=== PATIENT | male | born 1960 | race African-American/Black ===

== ENCOUNTER 2025-01-15 07:43 | Outpatient (CLI) | payer OTHER, SELFPAY ==
--- NOTE | ~2025-01-15 | PE_ITS ---
EXAMINATION: PET_PETPSMAST_PT DATE: 01/15/2025 10:28 INDICATION: Prostate cancer. TECHNIQUE: 4.573 mCi of Ga-68 gozetotide was administered intravenously. Low dose computed tomography (CT) images were acquired from the base of the brain to the proximal thighs for attenuation correction and anatomic localization. Automated exposure control was employed. Dose-length product (DLP) was 1056 mGy- cm. Positron emission tomography (PET) images were acquired in the same distribution. COMPARISON: None FINDINGS: Head/neck: There are no pathologically enlarged lymph nodes. There is a 12 mm nodule in the thyroid, likely not clinically significant. Chest: The lungs demonstrate mild atelectasis. No pleural effusion. Calcified right hilar lymph nodes are consistent with old granulomatous disease. The heart size is normal. No pericardial effusion. There is mild bilateral gynecomastia. Abdomen/pelvis/proximal thighs: The liver, gallbladder, spleen, pancreas, and left adrenal gland are normal. There is a 2.0 cm mass in right adrenal gland without increased activity. Right kidney is normal. There is a 3.6 cm cyst in left kidney. There is no urolithiasis. The prostate is moderately enlarged. There is increased activity in the prostate on the left with maximum SUV of 17.6. There is diffuse bladder wall thickening, likely secondary to chronic outlet obstruction. Stool distends the rectum. There is diverticulosis of the colon without evidence of diverticulitis. The appendix is normal. There are no pathologically enlarged lymph nodes. There is no free intraperitoneal fluid. There is no osseous malignancy. IMPRESSION: 1. Moderately enlarged prostate with increased activity on the left, consistent with primary malignancy. No metastatic prostate cancer. 2. 2.0 cm right adrenal mass. In the absence of other known malignancy, this finding is likely an adenoma. Reviewed, dictated and finalized at location E. IMPRESSION: 1. Moderately enlarged prostate with increased activity on the left, consistent with primary malignancy. No metastatic prostate cancer. 2. 2.0 cm right adrenal mass. In the absence of other known malignancy, this fi nding is likely an adenoma.
--- OUTSIDE RECORDS SUMMARY | 2025-01-15 08:09 | XMS_ITS | Encounter Summary ---
Author Organization [facility] Address [address] [place] [address] Phone Care Team Providers Care Mail Caller Name Role Phone Katy Painter APRN, PESTICIDE CONTROL INSPECTOR Primary Care P rovider Alexi Cueva APRN, PESTICIDE CONTROL INSPECTOR Unavailable + [phone] Reason for Visit * Reason Comments Medication Refill Encounter Details Date Type Department Care Team (Late st Contact Info) Description 07/27/2023 Refill [facility] - Primary Care - [place] [address] [place] [address] Katy Painter APRN, PESTICIDE CONTROL INSPECTOR [address] [place] [address] Medication Refill Social History Tobacco Use Types Packs/Day Years Used Date Smoking Tobacco: Former Cigarettes 1 5 0 06/24/1980 - 06/24/1985 Smokeless Tobacco: Never Alcohol Use Standard Drinks/Week Comments Yes 0 (1 standard drink = 0.6 oz pur e alcohol) Socially Social Connection and Isolation Panel Answer Date Recorded In a typical week, how many times do you talk on the phone with family, friends, or neighbors? Patient declined 04/18/2023 How often do you get togethe r with friends or relatives? Patient declined 04/18/2023 How often do you attend [facility] or confucianism services? More than 4 times per year 04/18/2023 Do you belong to any clubs o r organizations such as confucianism groups, unions, fraternal or athletic groups, or school groups? Yes 04/18/2023 How often do you attend meet ings of the clubs or organizations you belong to? More than 4 times per year 04/18/2023 Are you , , di vorced, , never , or living with a partner? 04/18/2023 AUDIT-C Answer Date Recorded Q1: How often do you have a drink containing alc ohol? Patient declined 04/18/2023 Q2: How many drinks containi ng alcohol do you have on a typical day when you are drinking? Patient declined 04/18/2023 Q3: How often do you have si x or more drinks on one occasion? Patient declined 04/18/2023 Overall Financial Resource Strain (CARDIA) Answe r Date Recorded How hard is it for you to pa y for the very basics like food, housing, medical care, and heating? Patient declined 04/18/2023 PHQ-2 Answer Date Recorded Total Score - Questions 1-9 0 06/02 [facility] Occupat ional [facility] - Occupational Stress Questionnaire Answer Date Recorded Do you feel stress - tense, restless, nervous, or anxious, or unable to sleep at night because your mind is troubled all the time - these days? Patient declined 04/18/2023 Exercise Vital Sign Answer Date Recorde d On average, how many days pe r week do you engage in moderate to strenuous exercise (like a brisk walk)? 5 days 04/18/2023 On average, how many minutes do you engage in exercise at this level? 30 min 04/18/2023 Hunger Vital Sign Answer Date Recorded Within the past 12 months, y ou worried that your food would run out before you got the money to buy more. Patient declined Within the past 12 months, t he food you bought just didn't last and you didn't have money to get more. Patient declined PRAPARE - Transportation Answer Date Re corded In the past 12 months, has l ack of transportation kept you from medical appointments or from getting medications? No 03/31 In the past 12 months, has l ack of transportation kept you from meetings, work, or from getting things needed for daily living? No 04/18/2023 Housing Stability Vital Sign Answer Will e Recorded In the last 12 months, was t here a time when you were not able to pay the mortgage or rent on time? Patient declined 04/18/20 23 Number of Places Lived in the Last Year Not on f ile 04/18/2023 In the last 12 months, was t here a time when you did not have a steady place to sleep or slept in a half-way (including now)? 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 Chronic Medication Refill Standing Order for Pediatricand Adult Patients. Requested Prescriptions Pending Prescriptions Disp Refills losartan potassium-hydrochlorothiazide (HYZAAR) 100-25 MG Tablet [Pharmacy Med Name: LOSARTAN-HCTZ 100-25 MG TAB] 30 Tablet 2 Sig: TAKE 1 TABLET BY MOUTH EVERY DAY ANGIOTENSIN-II RECEPTOR BLOCKERS-DIURETICS COMBO PROTOCOL Passed - 07/27/2023 11:25 AM Passed - Serum potassium on record in past 12 months POTASSIUM Date Value Ref Range Status 12/06/2022 3.9 3.5 - 5.1 mmol/L Final Passed - Serum sodium on record in past 12 months SODIUM Date Value Ref Range Status 12/06/2022 141 136 - 145 mmol/L Final Passed - BP on record in the past year Clinician-entered: BP Readings from Last 3 Encounters: 05/09/23 124/76 04/18/23 (!) 162/100 03/30/23 (!) 150/98 Patient-entered: No data recorded Passed - Visit with relevant provider in past year or upcoming 90 days Recent Visits Date Type Provider Dept 05/09/23 Office Visit Katy Painter, CREATIVE MANAGER, PESTICIDE CONTROL INSPECTOR [facility] 04/18/23 Office Visit Janeen Palacios, PAC [facility] 03/30/23 Office Visit Janeen Palacios, PAC [facility] 12/27/22 Office Visit Janeen Palacios, PAC [facility] 12/06/22 Office Visit Janeen Palacios, PAC [facility] Showing recent visits within past 365 days and meeting all other requirements Future Appointments Date Type Provider Dept 08/08/23 Appointment Katy Painter APRN, CNP [facility] Showing future appointments within next 90 days and meeting all other requirements Passed - GFR on record in past 12 months GFR, EST. Date Value Ref Range Status 12/06/2022 >60 >=60 Final documented in this encounter Plan of Treatment Not on file documented as of this encounter Visit Diagnoses Not on filedocumented in this encounter Additional Health Concerns Assessment Noted Time PHQ-9 Depression Total Score: 0 06/24/19 21 9:00 AM CUSTOMER SUPPORT TECHNICIAN documented as of this encounter Care Teams Mail Caller Relationship Specialty Start Date End Date Katy Painter APRN, CNP [address] [place] [address] PCP - General Advanced Practice Nurse 12/14/21 Alexi Cueva APRN, CNP [address] [place] [address] Nurse Practitioner Advanced Practice Nurse 09/13/24 documented as of this encounter
--- OUTSIDE RECORDS SUMMARY | 2025-01-15 08:09 | XMS_ITS | Encounter Summary ---
Author Organization [facility] Address [address] [place] [address] Phone Care Team Providers Care Risk Modeler Name Role Phone Jayce Velasquez PAC Primary Care Provider Katy Tiwari APRN, BIOPROCESSING MANUFACTURING TECHNICIAN Primary Care P rovider Alexi Cueva APRN, BIOPROCESSING MANUFACTURING TECHNICIAN Unavailable [phone] Reason for Visit * Reason Comments Medication Refill Encounter Details Date Type Department Care Team (Late st Contact Info) Description 11/21/2020 [facility]ill [facility] Care - [place] [facility] [place] [address] Jayce Velasquez, PAC Medication Refill Social History Tobacco Use Types Packs/Day Years Used Date Smoking Tobacco: Former Cigarettes 1 5 0 06/24/1980 - 06/24/1985 Smokeless Tobacco: Never Alcohol Use Standard Drinks/Week Comments Yes 0 (1 standard drink = 0.6 oz pur e alcohol) Socially PHQ-2 Answer Date Recorded Total Score - Questions 1-9 0 06/02 Sex and Gender Information Value Date Recorded Sex Assigned at Not on file Legal Sex Male 10:29 PM CDT Gender Identity Not on file Sexual Orientation Not on file 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 documented in this encounter Plan of Treatment Not on file documented as of this encounter Visit Diagnoses Diagnosis Hypertension, unspecified type documented in this encounter Additional Health Concerns Assessment Noted Time PHQ-9 Depression Total Score: 0 06/24/19 21 9:00 AM SALES REPRESENTATIVE PRINTING SUPPLIES documented as of this encounter Care Teams Risk Modeler Relationship Specialty Start Date End Date Jayce Velasquez PAC PCP - General Physician [employer] T[employer] Sales 06/24/20 12/13/21 Katy Painter APRN, BIOPROCESSING MANUFACTURING TECHNICIAN [address] [place] [address] PCP - General Advanced Practice Nurse 12/14/21 Alexi Cueva APRN, BIOPROCESSING MANUFACTURING TECHNICIAN [address] [place] [address] Nurse Practitioner Advanced Practice Nurse 09/13/24 documented as of this encounter
--- OUTSIDE RECORDS SUMMARY | 2025-01-15 08:09 | XMS_ITS | Encounter Summary ---
Author Organization [facility] Address [address] [place] [address] Phone Care Team Providers Care Terrazzo Laborer Name Role Phone Jayce Velasquez Primary Care Provider Katy Tiwari APRN, HORSEBACK EXCAVATOR Primary Care P rovider Alexi Cueva APRN, HORSEBACK EXCAVATOR Unavailable [phone] Reason for Visit * Reason Comments Medication Refill Encounter Details Date Type Department Care Team (Late st Contact Info) Description 07/05/2021 Refill [facility] [place] 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 STRIAL ENGINEER * Telephone Encounter - Tanisha Caceres RN - 07/06/2021 9:56 AM INDUSTRIAL ENGINEER Medication failed the protocol, provider to review and approve the medication order if appropriate. Requested Prescriptions Pending Prescriptions Disp Refills losartan (COZAAR) 50 MG Tablet [Pharmacy Med Name: LOSARTAN POTASSIUM 50 MG TAB] 30 Tablet 2 Sig: TAKE 1 TABLET BY MOUTH EVERY DAY ARB Protocol Failed - 07/05/2021 6:08 PM Failed - Serum potassium on record in past 12 months POTASSIUM Date Value Ref Range Status 06/24/2020 4.4 3.5 - 5.1 mmol/L Final Failed - GFR on record in past 12 months GFR, EST. Date Value Ref Range Status 06/24/2020 >60 >=60 Final Comment: Creatinine Clearance is the preferred criteria for selecting drug dose adjustments in renally impaired patients. The GFR is provided as additional pertinent clinical information. GFR is reported in mL/min/1.73 sq m. Passed - BP on record in the past year Clinician-entered: BP Readings from Last 3 Encounters: 02/01/21 134/70 11/30/20 124/78 08/27/20 138/88 Patient-entered: No data recorded Passed - Visit with relevant provider in past year or upcoming 90 days Recent Visits Date Type Provider Dept 02/01/21 Office Visit Jayce Velasquez PAC [facility] 11/30/20 Office Visit Jayce Velasquez PAC [facility] 08/27/20 Office Visit Jayce Velasquez PAC [facility] 07/27/20 Office Visit Jayce Velasquez PAC [facility] Showing recent visits within past 365 days and meeting all other requirements Future Appointments Date Type Provider Dept 07/13/21 Appointment Jayce Velasquez PAC [facility] Showing future appointments within next 90 days and meeting all other requirements STRIAL ENGINEER documented in this encounter Plan of Treatment Not on file documented as of this encounter Visit Diagnoses Not on filedocumented in this encounter Additional Health Concerns Assessment Noted Time PHQ-9 Depression Total Score: 0 06/24/19 21 9:00 AM INDUSTRIAL ENGINEER documented as of this encounter Care Teams Terrazzo Laborer Relationship Specialty Start Date End Date Jayce Velasquez PAC PCP - General Physician Etcher Photoengraving 06/24/20 12/13/21 Katy Painter APRN, HORSEBACK EXCAVATOR [address] [place] [address] PCP - General Advanced Practice Nurse 12/14/21 Alexi Cueva APRN, HORSEBACK EXCAVATOR [address] [place] [address] Nurse Practitioner Advanced Practice Nurse 09/13/24 documented as of this encounter
--- OUTSIDE RECORDS SUMMARY | 2025-01-15 08:09 | XMS_ITS | Encounter Summary ---
Author Organization [facility] Address [address] [place] [address] Phone Care Team Providers Care Treatment Plant Mechanic Name Role Phone Katy Painter APRN, ELECTRICIAN ELEVATOR MAINTENANCE Primary Care P rovider Alexi Cueva APRN, ELECTRICIAN ELEVATOR MAINTENANCE Unavailable [phone] Encounter Details Date Type Department Care Team (Late st Contact Info) Description 12/24/2024 Telephone [facility] [address] [place] [address] Elza Marsh MD [address], [facility] [address] [place] [address] Social History Tobacco Use Types Packs/Day Years Used Date Smoking Tobacco: Former Cigarettes 1 5 0 06/24/1980 - 06/24/1985 Smokeless Tobacco: Never Alcohol Use Standard Drinks/Week Comments Yes 0 (1 standard drink = 0.6 oz pur e alcohol) Socially [employer] Utilities Answer Date Recorded In the past 12 months has [employer] electric, gas, oil, or water company threatened to shut off services in your home? No 09/07/2023 Social Connection and Isolation Panel Answer Date Recorded In a typical week, how many times do you talk on the phone with family, friends, or neighbors? More than three times a week 09/07/2023 How often do you get togethe r with friends or relatives? More than three times a week 09/07/2023 How often do you attend chur ch or jainism services? More than 4 times per year 09/07/2023 Do you belong to any clubs o r organizations such as islam groups, unions, fraternal or athletic groups, or school groups? Yes 09/07/2023 How often do you attend meet ings of the clubs or organizations you belong to? More than 4 times per year 09/07/2023 Are you , , di vorced, , never , or living with a partner? 09/07/2023 AUDIT-C Answer Date Recorded Q1: How often do you have a drink containing alc ohol? Monthly or less 09/07/2023 Q2: How many drinks containi ng alcohol do you have on a typical day when you are drinking? 1 or 2 09/07/2023 Q3: How often do you have si x or more drinks on one occasion? Never 09/07/2023 Overall Financial Resource Strain (CARDIA) Answe r Date Recorded How hard is it for you to pa y for the very basics like food, housing, medical care, and heating? Not hard at all 09/07/2023 PHQ-2 Answer Date Recorded Total Score - Questions 1-9 0 06/02 [facility] - Occupational Stress Questionnaire Answer Date Recorded Do you feel stress - tense, restless, nervous, or anxious, or unable to sleep at night because your mind is troubled all the time - these days? Not at all 09/07/2023 Exercise Vital Sign Answer Date Recorde d On average, how many days pe r week do you engage in moderate to strenuous exercise (like a brisk walk)? 5 days 09/07/2023 On average, how many minutes do you engage in exercise at this level? 60 min 09/07/2023 Hunger Vital Sign Answer Date Recorded Within the past 12 months, y ou worried that your food would run out before you got the money to buy more. Never true 09/07/19 24 Within the past 12 months, t he food you bought just didn't last and you didn't have money to get more. Never true 09/07/2023 PRAPARE - Transportation Answer Date Re corded In the past 12 months, has l ack of transportation kept you from medical appointments or from getting medications? No 12/2023 In the past 12 months, has l ack of transportation kept you from meetings, work, or from getting things needed for daily living? No 09/07/2023 Housing Stability Vital Sign Answer Will e Recorded In the last 12 months, was t here a time when you were not able to pay the mortgage or rent on time? No 09/07/2023 In the last 12 months, how many places have you lived? 1 09/07/2023 In the last 12 months, was t here a time when you did not have a steady place to sleep or slept in a [place] [facility] facility (including now)? 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 on file Not on file documented as of this encounter Plan of Treatment Not on file documented as of this encounter Visit Diagnoses Not on filedocumented in this encounter Additional Health Concerns Assessment Noted Time PHQ-9 Depression Total Score: 0 06/24/19 21 9:00 AM INSPECTOR TOYS documented as of this encounter Care Teams Treatment Plant Mechanic Relationship Specialty Start Date End Date Katy Painter APRN, ELECTRICIAN ELEVATOR MAINTENANCE [address] [place] [address] PCP - General Advanced Practice Nurse 12/14/21 Alexi Cueva APRN, ELECTRICIAN ELEVATOR MAINTENANCE [address] [place] [address] Nurse Practitioner Advanced Practice Nurse 09/13/24 documented as of this encounter
--- OUTSIDE RECORDS SUMMARY | 2025-01-15 08:09 | XMS_ITS | Encounter Summary ---
Author Organization [facility] Address [address] 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 No / Unsure 06/24/2020 9:07 AM OPERATIONS LEAD documented as of this encounter Plan of Treatment Not on file documented as of this encounter Visit Diagnoses Diagnosis Hypertension, unspecified type documented in this encounter Additional Health Concerns Assessment Noted Time PHQ-9 Depression Total Score: 0 06/24/19 9:00 AM OPERATIONS LEAD documented as of this encounter Care Teams Toxicology Supervisor Relationship Specialty Start Date End Date Jayce Velasquez PAC PCP - General Physician Occupational Health And Safety Adviser 06/24/20 12/13/21 Katy Painter APRN, BAG INSPECTOR [address] [place] [address] PCP - General Advanced Practice Nurse 12/14/21 Alexi Cueva APRN, BAG INSPECTOR [address] [place] [address] Nurse Practitioner Advanced Practice Nurse 09/13/24 documented as of this encounter
--- OUTSIDE RECORDS SUMMARY | 2025-01-15 08:09 | XMS_ITS | Encounter Summary ---
Author Organization [facility] Address [address] [place] [address] Phone Care Team Providers Care Triage Specialist Name Role Phone Katy Painter APRN, CARTON MACHINE OPERATOR Primary Care P rovider Alexi Cueva APRN, YUMIKO Unavailable [phone] Reason for Visit * Reason Comments Medication Refill Encounter Details Date Type Department Care Team (Late st Contact Info) Description 04/22/2023 Refill [facility] - Primary Care - [place] [address] [place] [address] Janeen Palacios PAC [address] [place] [address] Medication Refill Social History Tobacco [...] declined 04/18/2023 How often do you attend [facility] or religion services? More than 4 times per year 04/18/2023 Do you belong to any clubs o r organizations such as mandaen groups, unions, fraternal or athletic groups, or [...] Total Score - Questions 1-9 0 06/02 [facility] - Occupational Stress Questionnaire Answer Date Recorded [...] place to sleep or slept in a skilled nursing (including now)? 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 on file Not on file documented as of this encounter Plan of Treatment Not on file documented as of this encounter Visit Diagnoses Not on filedocumented in this encounter Additional Health Concerns Assessment Noted Time PHQ-9 Depression Total Score: 0 06/24/19 21 9:00 AM DRY CLEANING TEACHER documented as of this encounter Care Teams Triage Specialist Relationship Specialty Start Date End Date Katy Painter APRN, CARTON MACHINE OPERATOR [address] [place] [address] PCP - General Advanced Practice Nurse 12/14/21 Alexi Cueva APRN, CARTON MACHINE OPERATOR [address] [place] [address] Nurse Practitioner Advanced Practice Nurse 09/13/24 documented as of this encounter
--- OUTSIDE RECORDS SUMMARY | 2025-01-15 08:09 | XMS_ITS | Encounter Summary ---
Author Organization [facility] Address [address] 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 No / Unsure 07/27/2020 9:18 AM CDT documented as of this encounter Plan of Treatment Not on file documented as of this encounter Visit Diagnoses Diagnosis Hypertension, unspecified type documented in this encounter Additional Health Concerns Assessment Noted Time PHQ-9 Depression Total Score: 0 06/24/19 9:00 AM APPLICATION SECURITY CONSULTANT documented as of this encounter Care Teams Termite Technician Relationship Specialty Start Date End Date Jayce Velasquez PAC PCP - General Physician Account Strategist 06/24/20 12/13/21 Katy Painter APRN, SYRUP BLENDER [address] [place] [address] PCP - General Advanced Practice Nurse 12/14/21 Alexi Cueva APRN, SYRUP BLENDER [address] [place] [address] Nurse Practitioner Advanced Practice Nurse 09/13/24 documented as of this encounter
--- OUTSIDE RECORDS SUMMARY | 2025-01-15 08:09 | XMS_ITS | Clinical Summary ---
Author Organization [facility] Address [address] [place] [address] Phone Care Team Providers Care Registered Nurse Maternal Child Name Role Phone Katy Painter APRN, YUMIKO Primary Care P rovider Alexi Cueva APRN, YUMIKO Unavailable [phone] Allergies No known active allergies Medications sildenafil citrate (VIAGRA) 100 MG TabletIndications: Erectile dysfunction due to arterial insufficiency Take 1 Tablet by mouth as needed for Erectile Dysfunction. 10 Tablet 4 Active Loveland-3 Fatty Acids (FISH OIL PO) Take by mouth daily. Active VITAMIN E PO Take by mouth daily. Active VITAMIN A PO Take by mouth daily. Active ELDERBERRY PO Take by mouth daily. Active losartan potassium-hydrochl orothiazide (HYZAAR) 100-25 MG Tablet TAKE 1 TABLET BY MOUTH EVERY DAY 30 Tablet 2 5 Active amLODIPine (NORVASC) 10 MG TabletIndications: Hypertension, unspecified type TAKE 1 TABLET BY MOUTH EVERY DAY 30 Tablet 2 5 Active Active Problems Problem Noted Date Diagnosed Date Primary hypertension 06/21/2022 Hypertriglyceridemia 06/21/2022 Encounters Date Type Department Care Team Description 12/24/[address] [facility] [address] [place] [address] Elza Marsh MD 12/14/2024 Refill [facility] [place] [address] [place] [phone] Katy Painter APRN, CNP Medication Refill 11/25/2024 Results Follow-Up [facility] [address] [place] [address] Alexi Cueva APRN, CNP CULTURE, URINE 11/22/2024 Telephone [facility] [address] [place] [address] Alexi Cueva APRN, CNP 11/19/2024 2:15 PM CDT Office Visit [facility] [address] [place] [phone] Alexi Cueva APRN, CNP Elevated PSA (Primary Dx); Other fatigue Discharge Disposition: Discharged to home or Selfcare 11/19/2024 Telephone [facility] [address] [place] [address] Elza Marsh MD 11/19/2024 Travel 11/17/2024 [facility] [place] [address] [place] [address] Katy Painter APRN, YUMIKO Medication Refill 10/15/2024 Telephone [facility] [address] [place] [address] Alexi Cueva APRN, CNP from Last 3 Months Immunizations Immunization Administration Dates Next Due Covid-19, Mrna, Lnp-s, Pf, 30 Mcg/0.3 Ml Dose (P fizer) 07/20/2020 Influenza Vaccine, Quadrivalent, PF 06/21/2022,1 Influenza,Split Virus,Trivalent,Injectable,PF Pneumococcal conjugate PCV20 , polysaccharide [id number] conjugate, adjuvant, PF 06/24/2024 TDAP Vaccine 06/24/2020 Family History Medical History Relation Name Comments No Known Problems Father No Known Problems Maternal Grandfather No Known Problems Maternal Grandmother No Known Problems Mother No Known Problems Paternal Grandfather No Known Problems Paternal Grandmother No Known Problems Sister 1 No Known Problems Sister 2 Relation Name Status Comments Father Maternal Grandfather Maternal Grandmother Mother Paternal Grandfather Paternal Grandmother Sister 1 Alive Sister 2 Alive Social History Tobacco Use Types Packs/Day Years Used Date Smoking Tobacco: Former Cigarettes 1 5 0 06/24/1980 - 06/24/1985 Smokeless Tobacco: Never Tobacco Cessation:Counseling Given: Not Answered Alcohol Use Standard Drinks/Week Comments Yes 0 (1 standard drink = 0.6 oz pur e alcohol) Socially Needish Utilities Answer Date Recorded In the past 12 months has th e electric, gas, oil, or water company threatened [...] week 09/07/2023 How often do you attend [facility] or religion services? More than 4 times per year 09/07/2023 Do you belong to any clubs o r organizations such as mormon groups, unions, fraternal or athletic groups, or [...] Total Score - Questions 1-9 0 06/02 [facility] - Occupational Stress [...] or slept in a half-way (including now)? 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 Not on file Not on file Last Filed Vital Signs Vital Sign Reading Time Taken Comments Blood Pressure 129/81 11/19/2024 2:24 PM CDT Pulse 84 11/19/2024 2:24 PM CDT Temperature 36.8 C (98.2 F) 09/12/2024 4:40 PM CDT Respiratory Rate 18 11/19/2024 2:24 PM CDT Oxygen Saturation 96% 11/19/2024 2:24 PM CDT Inhaled Oxygen Concentration - - Weight 87.5 kg (193 lb) 11/19/2024 2:24 PM CDT Height 175.3 cm (5' 9) 11/19/2024 2:24 PM CDT Body Mass Index 28.5 11/19/2024 2:24 PM CDT Plan of Treatment Health Maintenance Due Date Last Done Comments Colonoscopy 2004 Immunochemical Fecal Occult Blood 2004 Zoster Immunization (1 of 2) 2009 AAA Screening Ultrasound 2024 Influenza Immunization (#1) 12/30/202406/02, 06/21/2022, 02/01/2021 SARS-COV-2 Immunization ( season) 2024 04/26/2021, 08/11/2020, 07/20/2020 Cologuard 01/12/2026 01/12/2023 Colorectal Cancer Screening 01/12/2026 Td Immunization Every 10 Years (Adults With 1 Tdap) 06/24/2030 06/24/2020 Respiratory Syncytial Virus (RSV) Immunization (Adult) (1 - 1-dose 75+ series) 2034 DTaP/Tdap/Td Immunization Discontinued 06/24/2020 Hepatitis C Virus (HCV) Screening Completed 06/24/2020, 06/24/2020 Pneumococcal Immunization (50+ years) Completed 06/24/2024 Pneumococcal Immunization Combined Discontinued 06/24/2024 PSA Discussion Completed 09/27/2024, 08/30, 06/21/2022, Additional history exists Hepatitis B Immunization Discontinued Human Papillomavirus (HPV) Immunization Aged Out No longer eligible based on patient's age to complete this topic Meningococcal Immunization (ACWY) Aged Out No longer eligible based on patient's age to complete this topic Rotavirus Immunization Aged Out No lo nger eligible based on patient's age to complete this topic Procedures Procedure Name Priority Date/Time Associated Diagnosis Comments CULTURE, URINE Routine 11/19/2024 2:36 PM CDT Elevated PSA PSA DIAGNOSTIC,TOTAL Routine 09/27/2024 10:07 AM CDT Elevated PSA COLOGUARD Routine 01/12/2023 6:30 PM CDT Screening for colon cancer HEPATITIS C ANTIBODY Routine 06/24/2020 10:12 AM FORGING PRESS SETTER UP Preventative health care (Adult) from Last 3 Months or Most Recently Relevant to Health Maintenance Results * CULTURE, URINE (11/19/2024 2:36 PM CDT) CULTURE RESULTS Mixed Growth of One or More Distal Urethral Contaminants 11/20/2024 3:53 PM CDT [facility] Culture URINE SPECIMEN OBTAINED BY CLEAN CATCH PROCEDURE / Unknown Non-Phlebotomy Collection / Unknown 11/19/2024 2:36 PM CDT 11/19/2024 2:36 PM CDT us Alexi Cueva APRN, CNP MICROBIOLOGY - GENERAL ORDERABLES Final Result Performing Organization Address City/State/[facility] Co de Phone Number [facility] [address] [place] [address], * (ABNORMAL) PSA DIAGNOSTIC,TOTAL (09/27/2024 10:07 AM CDT) PSA, TOTAL (PROSTATIC SPECIFIC ANTIGEN) 10.82(H) <4.00 ng/mL 09/27/2024 12:36 PM CDT [facility] Blood Venipuncture / Unknown 09/27/2024 10:07 AM CDT 09/27/2024 11:46 AM CDT Narrative [facility] - 09/27/2024 12:36 PM CDT PSA NOTE: The PSA value should be used in conjunction with information available from clinical evaluation and other diagnostic procedures. The ALINITY Total PSA assay is a Chemiluminescent Microparticle Immunoassay (CMIA) for the quantitative determination of total PSA (both free PSA and PSA complexed to [id number]) in human serum. Total PSA values obtained with different assay methods, including Britton PSA assays, cannot be used interchangeably. Alexi Cueva TRANSPORTATION DISPATCHER, KNIT GOODS MENDER CHEMISTRY ORDERABLES F inal Result [facility] [address] [place] [address] * COLOGUARD (01/12/2023 6:30 PM CDT) Cologuard Negative Negative [facility] Comment: NEGATIVE TEST RESULT. A negative Cologuard result indicates a low likelihood that a colorectal cancer (CRC) or advanced adenoma (adenomatous polyps with more advanced pre-malignant features) is present. The chance that a person with a negative Cologuard test has a colorectal cancer is less than 1 in 1500 (negative predictive value >99.9%) or has an advanced adenoma is less than 5.3% (negative predictive value 94.7%). These data are based on a prospective cross-sectional study of 10,000 individuals at average risk for colorectal cancer who were screened with both Cologuard and colonoscopy. (Flakito Costello et al, N Engl J Med 2014;370(14):7375-1778) The normal value (reference range) for this assay is negative. COLOGUARD RE-SCREENING RECOMMENDATION: Periodic colorectal cancer screening is an important part of preventive healthcare for asymptomatic individuals at average risk for colorectal cancer. Following a negative Cologuard result, the [place] [employer] Society and U.S. Multi-Society Task Force screening guidelines recommend a Cologuard re-screening interval of 3 years. References: [place] [employer] Guideline for Colorectal Cancer Screening: https://www.cancer.org/cancer/zqtmw-hyidjr-bbhsqb/fpvxfkgxy-idshoagul-aithayt/ acs-recommendations.html.; Piter SALAZAR, Gunnar BURGOS, Clara RUDOLPH, Colorectal Cancer Screening: Recommendations for Physicians and Patients from the U.S. Multi-Society Task Force on Colorectal Cancer Screening , Am J Gastroenterology 2017; 112:7636-2675. TEST DESCRIPTION: Composite algorithmic analysis of stool DNA-biomarkers with hemoglobin immunoassay. Quantitative values of individual biomarkers are not reportable and are not associated with individual biomarker result reference ranges. Cologuard is intended for colorectal cancer screening of adults of either sex, 45 years or older, who are at average-risk for colorectal cancer (CRC). Cologuard has been approved for use by the U.S. FDA. The performance of Cologuard was established in a cross sectional study of average-risk adults aged 50-84. Cologuard performance in patients ages 45 to 49 years was estimated by sub-group analysis of near-age groups. Colonoscopies performed for a positive result may find as the most clinically significant lesion: colorectal cancer [4.0%], advanced adenoma (including sessile serrated polyps greater than or equal to 1cm diameter) [20%] or non- advanced adenoma [31%]; or no colorectal neoplasia [45%]. These estimates are derived from a prospective cross-sectional screening study of 10,000 individuals at average risk for colorectal cancer who were screened with both Cologuard and colonoscopy. (Flakito Phan al, N Engl J Med 2014;370(14):2661-6093.) Cologuard may produce a false negative or false positive result (no colorectal cancer or precancerous polyp present at colonoscopy follow up). A negative Cologuard test result does not guarantee the absence of CRC or advanced adenoma (pre-cancer). The current Cologuard screening interval is every 3 years. ([place] [employer] Society and U.S. Multi-Society Task Force). Cologuard performance data in a 10,000 patient pivotal study using colonoscopy as the reference method can be accessed at the following location: www.Nutrabolt.Corban Direct/results. Additional description of the Cologuard test process, warnings and precautions can be found at www.Go Dish.Corban Direct. Stool 01/12/2023 6:30 PM CDT 01/14/2023 2:12 PM CDT Janeen Palacios PAC BODY FLUIDS & STO OLS ORDERABLES Final Result [employer] [address] [place] [address], [employer] [address] [place] [address] * HEPATITIS C ANTIBODY (06/24/2020 10:12 AM FORGING PRESS SETTER UP) hepatitis C antibody 0.12 <1 S/[facility] ARCH [id number] F 06/24/2020 9:02 PM FORGING PRESS SETTER UP [facility] Comment: Signal/Cutoff ratio < 0.79 is Nondetected Signal/Cutoff ratio 0.80-0.99 is Grayzone Signal/Cutoff ratio > 0.99 is Detected Supplemental assays are recommended if signal/cutoff ratio is >/=1.00. Signal/cutoff ratio result >/= 5.00 is 97% predictive of positivity for recombinant immunoblot assay (RIBA) and will be reported to the [place] Department of Public Health as required. Blood Venipuncture / Unknown 06/24/2020 10:12 AM FORGING PRESS SETTER UP 06/24/2020 10:12 AM FORGING PRESS SETTER UP Jayce Velasquez PAC CHEMISTRY ORDERABLES Fin al Result [facility] [address] [place] [address], from Last 3 Months or Most Recently Relevant to Health Maintenance Insurance [facility] Care Teams Registered Nurse Maternal Child Relationship Specialty Start Date End Date Katy Painter APRN, KNIT GOODS MENDER [address] [place] [address] PCP - General Advanced Practice Nurse 12/14/21 Alexi Cueva, TRANSPORTATION DISPATCHER, KNIT GOODS MENDER [address] [place] [address] Nurse Practitioner Advanced Practice Nurse 09/13/24
--- OUTSIDE RECORDS SUMMARY | 2025-01-15 08:09 | XMS_ITS | Encounter Summary ---
Author Organization [facility] Address [address] [place] [address] Phone Care Team Providers Care Human Resources Trainer Name Role Phone Katy Painter APRN, MERCERIZING RANGE FEEDER Primary Care P rovider Alexi Cueva APRN, YUMIKO Unavailable [phone] Reason for Visit * Reason Comments Medication Refill Encounter Details Date Type Department Care Team (Late st Contact Info) Description 09/02/2023 Refill [facility] - Primary Care - [place] [address] [place] [address] Janeen Palacios PAC [address] [place] [address] Medication Refill Social History Tobacco [...] declined 04/18/2023 How often do you attend [facility] or restoration services? More than 4 times per year 04/18/2023 Do you belong to any clubs o r organizations such as protestant groups, unions, fraternal or athletic groups, or [...] Total Score - Questions 1-9 0 06/02 [facility] - [facility]ational Stress Questionnaire Answer Date [...] or rent on time? Patient declined 04/18/20 Number of Places Lived in the Last Year Not on f ile 04/18/2023 In the last 12 months, was t here a time when you did not have a steady place to sleep or slept in a mcfp (including now)? 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 Requested Prescriptions Pending Prescriptions Disp Refills amLODIPine (NORVASC) 10 MG Tablet [Pharmacy Med Name: AMLODIPINE BESYLATE 10 MG TAB] 30 Tablet 2 Sig: TAKE 1 TABLET BY MOUTH EVERY DAY Calcium-Channel Blockers Protocol Passed - 09/02/2023 12:47 AM Passed - BP on record in the past year Clinician-entered: BP Readings from Last 3 Encounters: 05/09/23 124/76 04/18/23 (!) 162/100 03/30/23 (!) 150/98 Patient-entered: No data recorded Passed - Visit with relevant provider in past 12 months or upcoming 90 days Recent Visits Date Type Provider Dept 05/09/23 Office Visit Katy Painter APRN, MERCERIZING RANGE FEEDER [facility] 04/18/23 Office Visit Janeen Palacios, PAC [facility] 03/30/23 Office Visit Janeen Palacios, PAC [facility] 12/27/22 Office Visit Janeen Palacios, PAC [facility] 12/06/22 Office Visit Janeen Palacios, PAC [facility] Showing recent visits within past 365 days and meeting all other requirements Future Appointments Date Type Provider Dept 09/08/23 Appointment Katy Painter APRN, CNP [facility] Showing future appointments within next 90 days and meeting all other requirements documented in this encounter Plan of Treatment Not on file documented as of this encounter Visit Diagnoses Diagnosis Hypertension, unspecified type documented in this encounter Additional Health Concerns Assessment Noted Time PHQ-9 Depression Total Score: 0 06/24/19 21 9:00 AM STERILE TECH documented as of this encounter Care Teams Human Resources Trainer Relationship Specialty Start Date End Date Katy Painter APRN, YUMIKO [address] [place] [address] PCP - General Advanced Practice Nurse 12/14/21 Alexi Cueva APRN, CNP [address] [place] [address] Nurse Practitioner Advanced Practice Nurse 09/13/24 documented as of this encounter
== END 2025-01-15 07:44 | disposition home or self-care (01) ==
PROVIDERS: Visit Provider Urology
DX: N40.0 Benign prostatic hyperplasia without lower urinary tract symptoms (principal); D35.01 Benign neoplasm of right adrenal gland; C61 Malignant neoplasm of prostate
CPT/HCPCS: 78815; A9596